=== PATIENT | female | born 1995 | race African-American/Black ===

== ENCOUNTER 2016-12-27 12:21 | Emergency (ER) | payer OTHER ==
[2016-12-27 12:25] VITALS: BP 112/73; PULSE 81; TEMP 98.2; BMI 18.8
[2016-12-27] MEDS ORDERED: predniSONE 20 MG TABLET (UD) PO ONE (12:57)
[2016-12-27] MEDS ORDERED: predniSONE 20 MG TABLET (UD) ONE (13:00)
--- NOTE | 2016-12-27 13:10 | PDOC ---
History of Present Illness - General Chief Complaint: Rash Stated Complaint: DIZZY WHEN STANDING UP AFTER TAKING LEXAPRO Time Seen by Provider: 12/27/16 12:46 - History of Present Illness Initial Comments: 12/27/16 12:59 21-year-old female with a negative past medical history She's been having some issues with anxiety, so she was started on Lexapro, 10 mg , on Sunday She took her first dose on Sunday and Sunday, but by Sunday morning noted some hives and blotchiness on her face, so she stopped taking the medication She states that her face still feels itchy, although a little less so, but now she is having some itchiness in her chest and back She states that she's having a few scattered hives on her neck and back She tried Benadryl but it has not been helping She denies any tongue swelling or throat swelling She also states that since she took a Lexapro she sometimes feels dizzy when she stands up, although this has been improving also She denies any chest pain or palpitations She denies any other complaints at this time She has not taken any additional Lexapro since Sunday Past History - Past Medical History Allergies/Adverse Reactions: Allergies Allergy/AdvReac Type Severity Reaction Status Date / Time escitalopram oxalate Allergy Verified 12/27/16 12:22 [From Lexapro] Home Medications: Ambulatory Orders Prednisone [Deltasone -] 40 mg PO DAILY #10 tablet 12/27/16 Psychiatric Problems: Yes (ANXIETY,DEPRESSION) - Psycho/Social/Smoking Cessation Hx Anxiety: No Suicidal Ideation: No Smoking History: Never smoked Have you smoked in the past 12 months: No Hx Alcohol Use: Yes Drug/Substance Use Hx: Yes Substance Use Type: Alcohol, Marijuana *Physical Exam - Vital Signs Last Vital Signs Temp Pulse Resp BP Pulse Ox 98.2 F 81 16 112/73 100 12/27/16 12:22 12/27/16 12:22 12/27/16 12:22 12/27/16 12:22 12/27/16 12:22 - Physical Exam Comments: 12/27/16 13:01 Physical exam Last Vital Signs Temp Pulse Resp BP Pulse Ox 98.2 F 81 16 112/73 100 12/27/16 12:22 12/27/16 12:22 12/27/16 12:22 12/27/16 12:22 12/27/16 12:22 GENERAL: The patient is awake, alert, and fully oriented, and in no apparent distress. HEAD: Normal with no signs of trauma. EYES: sclera anicteric, conjunctiva are normal. ENT: nares patent, oropharynx clear without exudates. Moist mucous membranes. There is no edema of the uvula or oropharynx NECK: Normal range of motion, supple LUNGS: Breath sounds equal, clear to auscultation bilaterally. HEART: Regular rate and rhythm, normal S1 and S2 without murmur, rub or gallop. SKIN: Warm, Dry, there is some erythema and scattered hives on the face, chest, and back Medical Decision Making - Medical Decision Making 12/27/16 13:32 Impression-ALLERGIC reaction to Lexapro Prednisone given Plan-prednisone, Benadryl, Lexapro was stopped on Sunday *DC/Admit/Observation/Transfer Diagnosis at time of Disposition: Allergic reaction, Adverse effect of drug - Discharge Dispostion Disposition: HOME Condition at time of disposition: Good - Prescriptions Prescriptions: Prednisone [Deltasone -] 40 mg PO DAILY #10 tablet - Patient Instructions Printed Discharge Instructions: DI for General Allergic Reactions, DI for Adverse Drug Reaction -- Allergic Additional Instructions: Prednisone, take once a day for the next 5 days-start tomorrow [id number]-[id number]-counter-one pill every 8 hours Do not take Lexapro again Followup with your primary care physician in 24-48 hours Return immediately if you worsen in any way Take your medications as directed - Post Discharge Activity Work/School Note: Back to Work
== END 2016-12-27 13:51 | disposition home or self-care (01) ==
LOC: FER 12:21
DX: T78.40XA Allergy, unspecified, initial encounter (principal); T43.225A Adverse effect of selective serotonin reuptake inhibitors, initial encounter; Y92.9 Unspecified place or not applicable; F41.8 Other specified anxiety disorders
CPT/HCPCS: 99281-25